=== PATIENT | male | born 1990 | race Caucasian/White ===

== ENCOUNTER → 2021-01-16 12:35 | Outpatient (CLI) | payer OTHER, SELFPAY | PROVIDERS: Visit Provider Physician Assistant | DX: J39.2 Other diseases of pharynx (principal) | CPT/HCPCS: 87070; 87147 ==

== ENCOUNTER → 2021-03-03 16:16 | Outpatient (CLI) | payer OTHER, SELFPAY ==
[2021-03-03 16:57] LABS: Add Manual Diff / Slide Review NO; Basophils Absolute Auto 100 /uL (0-100); Eosinophils Absolute Auto 100 /uL (0-450); Eosinophils Percent Auto 1.3 % (2-4); Hematocrit 46.9 % (41-53); Hemoglobin 15.8 g/dL (13.5-17.5); Lymphocytes Absolute Auto 2700 /uL (1100-4500); Lymphocytes Percent Auto 36.7 % (25-40); Mean Corpuscular HGB Conc 33.6 % (30-36); Mean Corpuscular Hemoglobin 29.5 PG (26-34); Mean Corpuscular Volume 87.7 fL (80-100); Monocytes Absolute Auto 600 /uL (0-900); Monocytes Percent Auto 7.9 % (3-14); Neutrophils Absolute Auto 3800 /uL (1500-7000); Neutrophils Percent Auto 53.1 % (50-75); Platelet Count 312 X10^3/uL (150-400); Red Blood Cell Count 5.34 X10^6/uL (4.5-5.9); Red Cell Distribution Width 13.2 % (11.6-14.8); White Blood Cell Count 7.2 X10^3/uL (4.5-11.0)
[2021-03-03 17:38] LABS: Alanine Aminotransferase 31 IU/L (<50); Albumin 4.9 g/dL (3.5-5.0); Albumin Globulin Ratio 1.6 (1.0-2.8); Alkaline Phosphatase 49 U/L (38-126); Aspartate Aminotransferase 26 IU/L (17-59); BUN Creatinine Ratio 11.7 (6-22); Bilirubin Total 0.7 mg/dL (0.2-1.3); Blood Urea Nitrogen 12 mg/dL (9-20); Calcium 9.8 mg/dL (8.4-10.2); Carbon Dioxide 30 mmol/L (22-32); Chloride 100 mmol/L (98-107); Estimated Glomerular Filt Rate > 60.0 mL/min (>60); Glucose 93 mg/dL (70-100); HEMOLYSIS < 15 (0-50); Potassium 4.4 mmol/L (3.4-5.1); Sodium 139 mmol/L (137-145); Total Protein 7.9 g/dL (6.3-8.2)
[2021-03-03 18:04] LABS: TSH w/ Reflex to FT4 0.87 uIU/mL (0.47-4.68)
== END ==
PROVIDERS: PCP Family Medicine; Referring Provider Family Medicine; Visit Provider Family Medicine
DX: J32.9 Chronic sinusitis, unspecified (principal); K21.9 Gastro-esophageal reflux disease without esophagitis; R19.8 Other specified symptoms and signs involving the digestive system and abdomen
CPT/HCPCS: 36415; 80053; 84443; 85025

== ENCOUNTER 2023-07-17 10:35 | Day surgery (SDC) | payer OTHER, SELFPAY ==
[2023-07-17] MEDS: LACTATED RINGERS 1,000 ML 42 ML IV (11:04)
[2023-07-17 11:07] VITALS: BP 129/75; PULSE 66; RESP 16; TEMP 36.1; O2SAT 97
--- NOTE | 2023-07-17 11:57 | PM.HP.1 ---
History of Present Illness History of Present Illness Date Patient Seen: 07/17/23 Time Patient Seen: 11:57 Chief complaint: EGD & Colonoscopy Narrative: 33-year-old male with a history of Pascual syndrome here for 1st time screening Esophagogastroduodenoscopy and colonoscopy. No abdominal concerns. His father and grandfather has a history of colon cancer. PFSH Family History Father Colon cancer Social History marital status: unmarried,single lives independently: Yes occupational status: employed Smoking Status: Former smoker alcohol intake: current Meds Home Medications and Allergies Home Medications Medication Instructions Recorded Confirmed Type loratadine 5 mg-pseudoephedrine ER 1 tab PO Q12H 01/16/21 07/17/23 History 120 mg tablet,extended release,12hr (Claritin-D 12 Hour) omeprazole 20 mg capsule,delayed 20 mg PO DAILY PRN heartburn #90 06/16/21 07/17/23 Rx release caps Allergies Allergy/AdvReac Type Severity Reaction Status Date / Time No Known Drug Allergies Allergy Verified 07/17/23 11:06 Exam Vital Signs (past 8 hours): - 07/17/23 11:07 Temperature 96.9 F L Pulse Rate 66 Respiratory Rate 16 Blood Pressure 129/75 Pulse Oximetry 97 Oxygen Delivery Method Room Air Oxygen Delivery Method Room Air Narrative Exam Narrative: General adult man alert oriented no acute distress Chest nonlabored respiration Extremities warm well perfused Assessment & Plan Assessment and plan (1) Pascual syndrome: Status: Acute Assessment & Plan narrative: 33-year-old male with Pascual syndrome here for screening Esophagogastroduodenoscopy and colonoscopy. Technical details were discussed. Risks, benefits, alternatives explained. Risks including but not limited to myocardial infarction, aspiration, bleeding, pain, missed lesion, incomplete examination, need for further radiographic studies, colonic perforation, and need for major abdominal surgery were discussed. All questions were answered to their satisfaction, and they are in agreement with this plan.
[2023-07-17 12:27] VITALS: BP 127/84; PULSE 56; RESP 18; TEMP 36.1; O2SAT 98
[2023-07-17 12:32] VITALS: BP 128/87; PULSE 53; RESP 16; O2SAT 100
--- NOTE | 2023-07-17 12:35 | PM.OP.EC ---
Operative Date/Time/Diagnoses Date of procedure: 07/17/23 Time of procedure: 12:35 Pre-op diagnosis: Pascual syndrome Procedure & Clinicians Study performed: Screening Esophagogastroduodenoscopy and colonoscopy Same procedure as scheduled: Yes Indications: Pascual syndrome Surgeon: Salomon Ford Procedure Notes Procedure in detail: The history and physical was performed/updated and the patient is ASA class is 2. The procedure was discussed in detail with the patient. Potential risks complications including infection, bleeding, missed diagnosis, perforation, need for surgery, and were explained. Their questions were answered and informed consent was obtained. Patient placed in left lateral decubitus position. Time out was performed. Procedural sedation was administered by Anesthesia. A bite block was placed. the scope was inserted into the mouth and advanced through the esophagus and into the stomach. the pylorus was intubated and the duodenum was examined to the 2nd portion.. The scope was retroflexed within the stomach. The stomach was then decompressed and scope pulled back to the GE junction. The scope was then removed Examination began with a thorough inspection of the perianal area there was no evidence of fissures, fistulae, external hemorrhoids or cutaneous malignancy. The colonoscopy scope was then placed into the anal canal and was advanced to the cecum, which was identified by the ileocecal valve, the appendiceal orifice and the confluence of the taenia. The scope was then slowly withdrawn examining colon thoroughly in all directions, irrigating it of any residual stool. FINDINGS -normal esophagus stomach and duodenum -normal colonoscopy. Healthy colonic mucosa without masses polyps or inflammation. The patient tolerated the procedure well. They will be discharged once criteria are met. The prep was of good/excellent quality. The withdrawl time was 6 minutes. Specimen(s): none sent Impression: Normal upper and lower endoscopy Post-procedure Plan for aftercare: Repeat colonoscopy every 1-2 years Repeat Esophagogastroduodenoscopy every 2-4 years Disposition: same day surgery
[2023-07-17 12:37] VITALS: BP 126/87; PULSE 67; RESP 12; O2SAT 98
[2023-07-17 12:42] VITALS: BP 138/88; PULSE 64; RESP 13; O2SAT 99
[2023-07-17 12:52] VITALS: BP 129/95; PULSE 55; RESP 14; O2SAT 99
== END 2023-07-17 13:01 | disposition home or self-care (01) ==
PROVIDERS: PCP Family Medicine; Referring Provider Surgery; Visit Provider Surgery
PROC: 0DJ08ZZ Inspection of Upper Intestinal Tract, Via Natural or Artificial Opening Endoscopic (ICD-10-PCS; CPT 43235; principal; 2023-07-17 11:15)
PROC: 0DJD8ZZ Inspection of Lower Intestinal Tract, Via Natural or Artificial Opening Endoscopic (ICD-10-PCS; CPT 45378; 2023-07-17 11:15)
DX: Z12.11 Encounter for screening for malignant neoplasm of colon (principal); Z80.0 Family history of malignant neoplasm of digestive organs; Z15.09 Genetic susceptibility to other malignant neoplasm
CPT/HCPCS: 45378; 43235; J2704